=== PATIENT | female | born 1970 | race Caucasian/White ===

== ENCOUNTER 2017-01-22 00:01 | Emergency (ER) | payer BC ==
[~2017-01-22] VITALS: Ht 160 cm; Wt 83.9 kg
[~2017-01-22 00:01] MED LIST: ALBUTEROL17 GM; IBUPROFEN800 MG PO; MOTRIN400 MG PO; MOTRIN600 M1 PO; NO MEDICATIONS; TUSSIONEX PENN480 ML PO; VICODIN 5/1 TAB 5/50 PO
[2017-01-22] MEDS ORDERED: NO MEDICATIONS (00:40)
== END 2017-01-22 01:54 | disposition home or self-care (01) ==
LOC: SED 00:01
DX: M54.12 Radiculopathy, cervical region (principal)
CPT/HCPCS: 99283